=== PATIENT | male | born 1955 | race African-American/Black ===

== ENCOUNTER 2019-08-21 14:42 | Emergency (ER) | payer BC ==
[2019-08-21 15:01] VITALS: BMI 32.3
[2019-08-21] MEDS ORDERED: ACETAMINOPHEN 500 MG TABLET (FP) PO ONE (15:20)
[2019-08-21] MEDS ORDERED: KETOROLAC TROMETHAMINE 60 MG/2 ML VIAL IM ONE (15:20)
[2019-08-21] MEDS ORDERED: ACETAMINOPHEN 500 MG TABLET (FP) ONE (15:22)
[2019-08-21] MEDS ORDERED: KETOROLAC TROMETHAMINE 60 MG/2 ML VIAL ONE (15:22)
--- NOTE | 2019-08-21 15:25 | PDOC ---
History of Present Illness - General Chief Complaint: Pain Stated Complaint: LT LEG PAIN Time Seen by Provider: 08/21/19 15:08 History Source: Patient - History of Present Illness Occurred: reports: other Pain Location: reports: back Past History - Medical History Allergies/Adverse Reactions: Allergies Allergy/AdvReac Type Severity Reaction Status Date / Time No Known Allergies Allergy Verified 08/21/19 14:54 Home Medications: Ambulatory Orders Azithromycin [Zithromax 250mg Tablets -] 250 mg PO DAILY #5 tab 12/05/13 Cefuroxime Axetil [Ceftin] 500 mg PO BID #14 tablet 12/05/13 Acetaminophen [Tylenol -] 1,000 mg PO Q6H #50 tablet 08/21/19 Cyclobenzaprine HCl [Flexeril 10 mg] 10 mg PO BID #9 tablet 08/21/19 Oxycodone HCl/Acetaminophen [Percocet 5-325 mg Tablet] 1 tab PO Q6H PRN #12 tablet MDD 4 doses 08/21/19 Anemia: No Asthma: No Cancer: No Cardiac Disorders: Yes (STENT) CVA: No COPD: No CHF: No Dementia: No Diabetes: No GI Disorders: No Disorders: No HTN: Yes Hypercholesterolemia: No Liver Disease: No Seizures: No Thyroid Disease: No - Surgical History Abdominal Surgery: (UMBILICAL HERNIA REPAIR) Appendectomy: No Cardiac Surgery: No Cholecystectomy: No Lung Surgery: No Neurologic Surgery: No - Psycho-Social/Smoking History Smoking History: Never smoked Have you smoked in the past 12 months: Yes Number of Cigarettes Smoked Daily: 10 (x 40 years) 'Breaking Loose' booklet given: 12/04/13 Review of Systems - Review of Systems Constitutional: No: Chills, Fever ABD/GI: No: Nausea, Vomiting, Abdominal cramping : No: Dysuria, Flank Pain, Hematuria Musculoskeletal: Yes: Back Pain Neurological: No: Numbness, Tingling, Weakness *Physical Exam - Vital Signs Last Vital Signs Temp Pulse Resp BP Pulse Ox 98 F 117 H 18 162/103 H 99 08/21/19 14:47 08/21/19 14:47 08/21/19 14:47 08/21/19 14:47 08/21/19 14:47 - Physical Exam 08/21/19 15:24 sitting in wheel chair in exam rom w/ slow gait on ambulation General Appearance: Yes: Appropriately Dressed, Mild Distress HEENT: positive: Normal Voice Neck: positive: Supple Respiratory/Chest: negative: Respiratory Distress Gastrointestinal/Abdominal: positive: Normal Bowel Sounds, Soft. negative: Tender, Pulsatile Mass, Distended, Guarding, Rebound Musculoskeletal: negative: CVA Tenderness, Vertebral Tenderness Extremity: positive: Normal Inspection Integumentary: positive: Dry, Warm Neurologic: positive: Fully Oriented, Alert, Normal Mood/Affect, Motor Strength 5/5 Medical Decision Making - Medical Decision Making 08/21/19 15:21 63 to M, HTN< CAD w/ 1 stent, on daily asa, here w/ severe L lower back pain that started immediately after bending down 3 days ago. pain sharp, worse w/ weight bearing. No sensory changes, LE weakness, saddle anesthesia or B/B incontinence. Taking aleve w/ no relief. No h/o similar pain. No sxs, abd pain, n/v/f/c see exam M/l MSK back pain Occurred after bending down No e/o cauda equina No infectious sxs BP sig elevated w/ tachycardia, m/l 2/2 pain, unlikely dissection, on BP meds and compliant per pt -pain control in ED and reassess 08/21/19 15:25 08/21/19 16:10 Pt reports improvement in sxs and able to ambulate without much difficulty now. Vitals improved. Will dc w/ pain control and PMD f/u with pain persists. Reasons to return to ED d/w pt Discharge - Discharge Information Problems reviewed: Yes Clinical Impression/Diagnosis: Low back pain Qualifiers: Chronicity: acute Back pain laterality: left Sciatica presence: without sciatica Qualified Code(s): M54.5 - Low back pain Condition: Improved Disposition: HOME - Additional Discharge Information Prescriptions: Cyclobenzaprine HCl [Flexeril 10 mg] 10 mg PO BID #9 tablet Oxycodone HCl/Acetaminophen [Percocet 5-325 mg Tablet] 1 tab PO Q6H PRN #12 tablet MDD 4 doses PRN Reason: Severe Pain Acetaminophen [Tylenol -] 1,000 mg PO Q6H #50 tablet - Follow up/Referral Referrals: Toribio Ferrari MD [Primary Care Provider] - - Patient Discharge Instructions Patient Printed Discharge Instructions: Low Back Pain Additional Instructions: Take medications as directed Follow up with your PMD if pain persists - Post Discharge Activity
[2019-08-21 16:11] VITALS: BP 148/109; PULSE 98; TEMP 98.5
== END 2019-08-21 16:47 | disposition home or self-care (01) ==
LOC: JER 14:42
PROC: 3E0233Z Introduction of Anti-inflammatory into Muscle, Percutaneous Approach (ICD-10-PCS; principal; 2019-08-21)
DX: M54.5 Low back pain (principal)
CPT/HCPCS: 99284-25